=== PATIENT | female | born 1985 | race Caucasian/White ===

== ENCOUNTER 2019-05-16 13:09 | Emergency (ER) | payer OTHER ==
[~2019-05-16] VITALS: Ht 175.3 cm; Wt 70.3 kg
[2019-05-16] MEDS ORDERED: Triamcinolone A15 G3 TOP (14:51)
== END 2019-05-16 14:55 | disposition home or self-care (01) ==
LOC: ER 13:09
DX: L23.7 Allergic contact dermatitis due to plants, except food (principal)
CPT/HCPCS: 96372; 99283-25; J3301

== ENCOUNTER 2019-05-26 10:24 | Emergency (ER) | payer OTHER ==
[~2019-05-26] VITALS: Ht 175.3 cm; Wt 72.6 kg
[~2019-05-26 10:24] MED LIST: Triamcinolone A15 G3 TOP
[2019-05-26] MEDS ORDERED: Prednisone20 MG PO (11:04)
== END 2019-05-26 11:05 | disposition home or self-care (01) ==
LOC: ER 10:24
DX: L23.7 Allergic contact dermatitis due to plants, except food (principal)
CPT/HCPCS: 99282